=== PATIENT | male | born 1950 | race Hispanic/Latino ===

== ENCOUNTER 2022-05-10 00:32 | Day surgery (SDC) | payer MEDICARE, SELFPAY ==
[2022-04-27 13:30] VITALS: BMI 21.8
[2022-05-10 06:19] VITALS: BP 189/76; PULSE 110; RESP 18; TEMP 36.6; O2SAT 100
[2022-05-10] MEDS: LACTATED RINGERS 1,000 ML 150 ML IV CONT (06:21)
--- NOTE | 2022-05-10 07:00 | WPDANESEPPF ---
Anes - Initial Pre Proc Eval Procedure: Operation Date: 05/10/22 07:30 Proposed Procedures p Screening Colonoscopy - Ari Murphy MD Date/Time: 05/10/22 07:00 Surgeon: Ari Murphy MD Pre Op Diagnosis: hx of colon polyps Patient Data Age: 71 Gender: M Height: 1.83 m Weight: 71.9 kg Last Vital Signs Temp 36.6 C 05/10/22 06:19 Pulse 110 H 05/10/22 06:19 Resp 18 05/10/22 06:19 BP 189/76 H 05/10/22 06:19 Pulse Ox 100 05/10/22 06:19 O2 Del Method Room Air 05/10/22 06:19 Allergies Allergy/AdvReac Type Severity Reaction Status Date / Time No Known Allergies Allergy Verified 05/10/22 06:16 Home Medications Medication Instructions Recorded Confirmed Type sildenafil 25 mg tablet 25 mg PO DAILY PRN sexual activity 01/12/22 05/10/22 Rx #30 tabs amlodipine 5 mg tablet 5 mg PO DAILY #30 tabs 03/07/22 05/10/22 Rx tamsulosin 0.4 mg capsule 0.4 mg PO DAILY #30 caps 04/14/22 05/10/22 Rx Patient hx anesthesia problems: none Family hx anesthesia problems: none Results Review: All pre-operative results and documents have been reviewed as part of the pre-operative evaluation. [facility] Past Medical History Medical History (Updated 05/10/22 @ 07:00 by Ronak Alejandro MD) HTN (hypertension) Surgical History Surgical History (Updated 05/10/22 @ 07:00 by Ronak Alejandro MD) H/O colonoscopy Family History Family History Father Hypertension Family history of liver disease Family history of heart disease in male family member before age 55 Diabetes mellitus Sibling Hypertension Family history of diabetes mellitus in first degree relative Family history of lupus erythematosus Family history of heart disease in male family member before age 55 Mother Family history of malignant neoplasm of breast in first degree relative Social History Social History Smoking status: Never smoker Second hand tobacco smoke exposure: No Alcohol intake: current Drinks per week: 5 Substance use type: does not use Living arrangements: with family Spiritual care concerns: No Anes - Eval Final PreProcedure Day of Procedure 05/10/22 07:00 Patient weight: normal Heart: regular rate and rhythm and murmur (III/ SM) Lungs: clear to auscultation Neurological: alert and oriented Last oral intake: >/= 8 hours ASA classification: II Emergent: no Anesthetic plan: proceed Anesthesia type and monitoring: general GIVS and standard monitoring Results Review: All pre-operative results and documents have been reviewed as part of the pre-operative evaluation. Informed Consent: The patient's anesthetic plan and its attendant risks and benefits were discussed with the patient/family/POA. Questions were solicited and answers provided to the satisfaction of the patient/family/POA.
--- NOTE | 2022-05-10 07:24 | PM.IMHP ---
H&P: HPI History of Present Illness Date/Time: 05/10/22 07:24 Chief Complaint: Neoplasia screening. Narrative: This is a 71-year-old white male patient presents for screening colonoscopy. Patient's current weight appetite and bowel movements are normal. He denies abdominal pain. Patient has had no bleeding. Patient has a prior history of adenomatous colon polyp removed by colonoscopy in 2008. Patient's family history is noncontributory. Patient presents today for screening colonoscopy. Review of Systems Review of Systems: Review of systems noncontributory. [facility] Past Medical History Medical History (Updated 05/10/22 @ 07:25 by Ari Murphy MD) HTN (hypertension) Surgical History Surgical History (Updated 05/10/22 @ 07:00 by Ronak Alejandro MD) H/O colonoscopy Family History Family History Father Hypertension Family history of liver disease Family history of heart disease in male family member before age 55 Diabetes mellitus Sibling Hypertension Family history of diabetes mellitus in first degree relative Family history of lupus erythematosus Family history of heart disease in male family member before age 55 Mother Family history of malignant neoplasm of breast in first degree relative Social History Social History Smoking status: Never smoker Second hand tobacco smoke exposure: No Alcohol intake: current Drinks per week: 5 Substance use type: does not use Living arrangements: with family Spiritual care concerns: No Meds Home Medications and Allergies Home Medications Medication Instructions Recorded Confirmed Type sildenafil 25 mg tablet 25 mg PO DAILY PRN sexual activity 01/12/22 05/10/22 Rx #30 tabs amlodipine 5 mg tablet 5 mg PO DAILY #30 tabs 03/07/22 05/10/22 Rx tamsulosin 0.4 mg capsule 0.4 mg PO DAILY #30 caps 04/14/22 05/10/22 Rx Allergies Allergy/AdvReac Type Severity Reaction Status Date / Time No Known Allergies Allergy Verified 05/10/22 06:16 Vital Signs Vital Signs - 24 hr 05/10/22 06:19 Temperature 97.9 F Pulse Rate 110 H Respiratory Rate 18 Blood Pressure 189/76 H Pulse Oximetry 100 Oxygen Delivery Room Air Exam Narrative: Physical exam reveals patient to be alert. Vital signs stable. HEENT exam is unremarkable. Patient is anicteric. Lungs are clear to auscultation and percussion. Heart is without murmur or extra sounds. Abdomen bowel sounds are present soft nontender with no organomegaly. Digital external rectal exam is normal. Assessment and Plan Assessment and plan (1) History of colon polyps: Code(s): Z86.010 - Personal history of colonic polyps Status: Acute Assessment and Plan: Patient has a prior history of colon polyps. He presents today for surveillance colonoscopy. Further recommendations may be given after endoscopy.
[2022-05-10 07:48] VITALS: BP 110/52; PULSE 76; RESP 17; O2SAT 100
[2022-05-10 07:58] VITALS: BP 118/51; PULSE 73; RESP 17; O2SAT 100
[2022-05-10 08:08] VITALS: BP 129/62; PULSE 72; RESP 21; O2SAT 100
== END 2022-05-10 08:15 | disposition home or self-care (01) ==
PROVIDERS: PCP Family Medicine; Visit Provider Internal Medicine Gastroenterology
PROC: 0DJD8ZZ Inspection of Lower Intestinal Tract, Via Natural or Artificial Opening Endoscopic (ICD-10-PCS; CPT 45378; principal; 2022-05-10 07:30)
DX: Z12.11 Encounter for screening for malignant neoplasm of colon (principal); K64.8 Other hemorrhoids; Z86.010 Personal history of colon polyps; I10 Essential (primary) hypertension
CPT/HCPCS: G0105; J2704; J7120

== ENCOUNTER 2022-10-25 05:52 | Day surgery (SDC) | payer MEDICARE, SELFPAY ==
[2022-10-19 13:32] VITALS: BMI 22.8
[2022-10-19 14:56] VITALS: BMI 22.7
[2022-10-25 06:21] VITALS: BP 173/72; PULSE 92; RESP 16; TEMP 37; O2SAT 100; BMI 22.3
[2022-10-25] MEDS: LACTATED RINGERS 1,000 ML 30 ML IV CONT (07:00)
--- NOTE | 2022-10-25 07:19 | WPDHPUPDATE1 ---
History and Physical Update Update Date/Time: 10/25/22 07:19 History and Physical has been reviewed, including an updated exam of the patient. There are NO changes in the patient's condition. Risks, benefits, and alternatives have been discussed and questions answered. Patient agrees to proceed with procedure.
--- NOTE | 2022-10-25 07:28 | WPDANESEPPF ---
Anes - Initial Pre Proc Eval Procedure: Operation Date: 10/25/22 07:30 Proposed Procedures p Excisional Biopsy Posterior Neck Mass x2 - Ivett Lomas MD Date/Time: 10/25/22 07:28 Surgeon: Ivett Lomas MD Pre Op Diagnosis: LT Posterior Neck Mass & RT Posterior Neck Cy Patient Data Age: 71 Gender: M Height: 1.83 m Weight: 74.6 kg Last Vital Signs Temp 37.0 C 10/25/22 06:21 Pulse 92 10/25/22 06:21 Resp 16 10/25/22 06:21 BP 173/72 H 10/25/22 06:21 Pulse Ox 100 10/25/22 06:21 O2 Del Method Room Air 10/25/22 06:21 Allergies Allergy/AdvReac Type Severity Reaction Status Date / Time No Known Allergies Allergy Verified 10/25/22 06:12 Home Medications Medication Instructions Recorded Confirmed Type sildenafil 25 mg tablet 25 mg PO DAILY PRN sexual activity 01/12/22 10/19/22 Rx #30 tabs amlodipine 5 mg tablet 5 mg PO DAILY #90 tabs 09/02/22 10/19/22 Rx tamsulosin 0.4 mg capsule 0.4 mg PO DAILY #90 caps 09/27/22 10/25/22 Rx Patient hx anesthesia problems: none Family hx anesthesia problems: none Results Review: All pre-operative results and documents have been reviewed as part of the pre-operative evaluation. [facility] Past Medical History Medical History HTN (hypertension) Surgical History Surgical History H/O colonoscopy History of tonsillectomy Family History Family History Father Hypertension Family history of liver disease Family history of heart disease in male family member before age 55 Diabetes mellitus Sibling Hypertension Family history of diabetes mellitus in first degree relative Family history of lupus erythematosus Family history of heart disease in male family member before age 55 Mother Family history of malignant neoplasm of breast in first degree relative Social History Social History Smoking status: Never smoker Second hand tobacco smoke exposure: No Alcohol intake: current Drinks per week: 1 Alcohol use details: NONE FOR LENT Substance use: never Substance use type: does not use Lack of Transportation: No Lack of Food: Never True Current Housing: I Have Housing Concerned About Future Housing: No Difficulty Paying Gas/Electric Bills: No Difficulty Paying for Meds: No Currently Unemployed: No Education: Bachelor's Degree Difficulty w/ Childcare or Family Care: No Living arrangements: with family Occupation/Education: retired Spiritual care concerns: No Anes - Eval Final PreProcedure Day of Procedure 10/25/22 07:28 Patient weight: normal Heart: regular rate and rhythm Lungs: clear to auscultation Airway: Mallampati scale class II Neurological: alert and oriented Last oral intake: >/= 8 hours ASA classification: II Emergent: no Anesthetic plan: proceed Anesthesia type and monitoring: general GIVS and standard monitoring Results Review: All pre-operative results and documents have been reviewed as part of the pre-operative evaluation. Informed Consent: The patient's anesthetic plan and its attendant risks and benefits were discussed with the patient/family/POA. Questions were solicited and answers provided to the satisfaction of the patient/family/POA.
[2022-10-25] MEDS: ceFAZolin SODIUM 2 GM/20 ML SW SYRINGE IV PUSH (07:30)
--- NOTE | 2022-10-25 08:03 | W.PM.PROC2 ---
Procedure Note - Detailed Date of Procedure 10/25/22 Pre-op Diagnosis Left Posterior Neck Mass & Right Posterior Neck Cyst Post-op Diagnosis Same Procedure Performed Excisional biopsy left posterior neck mass measuring approximately 7 x 5 cm and right posterior neck cyst measuring approximately 1 x 0.5 cm Surgeon Ivett Lomas MD Anesthesia MAC and Local Indications The patient is a 71-year-old male presenting to the office with slowly growing left posterior neck mass. The patient reports slow growth in size and now symptomatic especially with pressure movement. The patient also has a small right posterior neck cyst Findings left posterior neck lipoma measuring approximately 7 x 5 cm, right posterior neck cystic mass measuring approximately 1 x 0.5 cm Description of Procedure The patient was taken to the operating room and placed in the lateral position. After adequate induction of MAC anesthesia, the patient was prepped and draped in the normal sterile fashion. A time-out was then done to verify the patient's identity, as well as the procedure being performed. I began by localizing both these areas in the posterior neck. Once adequately localized, I 1st made an elliptical incision around the smaller cystic mass. I was then able to go through the dermis into the subcutaneous tissue where was able to locate the cystic mass. I was able to then excise the mass in full. Once excised it was sent to pathology for further review. I then gained hemostasis with the Bovie cautery. I then closed the subcutaneous tissue with 3-0 Vicryl suture. The skin was closed with 4-0 Monocryl subcuticular suture. I then made an incision over the larger mass in the left posterior neck. Once through the dermis into the subcutaneous tissue, I encountered a well-circumscribed lipoma. I was able to bluntly dissect around the adhesions to this lipoma. The lipoma was then removed in full and will be sent to pathology for further. I again gained hemostasis with the Bovie cautery. The subcutaneous tissue was closed with 3-0 Vicryl suture and the skin was closed with 4-0 Monocryl subcuticular suture. Dermabond was placed on both wounds. The patient was be transferred to the recovery room in stable condition. Estimated Blood Loss 5 Drains No Packing No Pathology Yes Complications No immediate complications Condition Stable Disposition PACU [facility] Billing Surgery - Charge Forward: Surgery Billing
[2022-10-25] MEDS: BUPIVACAINE/EPINEPHRINE 0.5% 30 ML VIAL 20 ML INFILTRATE (08:06)
[2022-10-25 08:16] VITALS: BP 142/62; PULSE 86; RESP 14; O2SAT 97
--- NOTE | 2022-10-25 08:22 | WPDANESPN ---
Anes - Prog Note Post-Op Date/Time: 10/25/22 08:22 Cardiovascular status: normal Respiratory status: normal Airway patency: baseline Mental status: baseline Post-Op hydration status: normal Vital Signs: Last Vital Signs Temp 37.0 C 10/25/22 06:21 Pulse 86 10/25/22 08:16 Resp 14 10/25/22 08:16 BP 142/62 H 10/25/22 08:16 Pulse Ox 97 10/25/22 08:16 O2 Del Method Room Air 10/25/22 08:16 Pain Score (VAS): 0 I/O: Intake & Output 10/24/22 10/25/22 10/25/22 23:59 07:59 15:59 Intake Total 0 Balance 0 Patient Feedback: Patient satisfied with anesthetic care.
[2022-10-25 08:30] VITALS: BP 127/62; PULSE 78; RESP 16; O2SAT 99
[2022-10-25 08:45] VITALS: BP 124/62; PULSE 69; RESP 16; O2SAT 99
--- NOTE | 2022-10-25 09:14 | SUR.PHASEII ---
0850 PT AWAKE AND ALERT. DENIES PAIN OR NAUSEA. DRINKING APPLE JUICE. SPOUSE AT BEDSIDE
== END 2022-10-25 09:10 | disposition home or self-care (01) ==
PROVIDERS: PCP Family Medicine; Visit Provider Surgery
PROC: (CPT 21552; principal; 2022-10-25 07:30)
DX: R22.1 Localized swelling, mass and lump, neck (principal)
CPT/HCPCS: 21552; 21555

== ENCOUNTER 2022-10-25 09:00 | Outpatient (NON) | payer MEDICARE, SELFPAY | END 2022-10-25 09:01 | disposition home or self-care (01) | LOC: ANHLAB 10-26 10:35 | PROVIDERS: PCP Family Medicine; Visit Provider Surgery | DX: L72.0 Epidermal cyst (principal); D17.0 Benign lipomatous neoplasm of skin and subcutaneous tissue of head, face and neck | CPT/HCPCS: 88304 ==

== ENCOUNTER 2023-04-12 08:04 | Outpatient (CLI) | payer MEDICARE, SELFPAY ==
[2023-04-12 18:55] LABS: Alanine Aminotransferase 23 U/L (6-50); Albumin Level 3.9 g/dL (3.5-5.1); Alkaline Phosphatase 55 U/L (38-126); Anion Gap 3 mmol/L (8-16); Aspartate Amino Transferase 35 U/L (17-59); Bilirubin,Total 0.5 mg/dL (0.2-1.3); Blood Urea Nitrogen 27 mg/dL (9-20); Calcium 8.5 mg/dL (8.4-10.2); Carbon Dioxide 26 mmol/L (22-30); Chloride 105 mmol/L (98-107); Cholesterol 175 mg/dL (0-200); Estimated Glomerular Filt Rate > 60; Glucose 99 mg/dL (65-110); HDL Direct 53 mg/dL; Potassium 4.9 mmol/L (3.4-5.0); Sodium 134 mmol/L (137-145); Triglycerides 61 mg/dL (<150)
[2023-04-12 19:06] LABS: LDL Cholesterol Direct 91 mg/dL
[2023-04-16 06:18] LABS: PSA, Free 0.74 ng/mL; PSA, Total 3.8 ng/mL (<=4.0); Percent Free Prostate Spec Ag 19 % (>25)
== END 2023-04-12 08:05 | disposition home or self-care (01) ==
PROVIDERS: PCP Family Medicine; Visit Provider Family Medicine
DX: Z13.220 Encounter for screening for lipoid disorders (principal); R97.20 Elevated prostate specific antigen [PSA]; I10 Essential (primary) hypertension
CPT/HCPCS: 36415; 80053; 80061; 84153; 84154

== ENCOUNTER 2024-05-03 08:09 | Outpatient (CLI) | payer MEDICARE, SELFPAY ==
[2024-05-03 16:12] LABS: Alanine Aminotransferase 21 U/L (6-50); Albumin Level 4.2 g/dL (3.5-5.1); Alkaline Phosphatase 62 U/L (38-126); Anion Gap 9 mmol/L (4-12); Aspartate Amino Transferase 73 U/L (17-59); Bilirubin,Total 0.7 mg/dL (0.2-1.3); Blood Urea Nitrogen 31 mg/dL (9-20); Calcium 8.5 mg/dL (8.4-10.2); Carbon Dioxide 29 mmol/L (22-30); Chloride 102 mmol/L (98-107); Cholesterol 165 mg/dL (0-200); Estimated Glomerular Filt Rate > 60; Glucose 78 mg/dL (65-110); HDL Direct 48 mg/dL; Potassium 4.4 mmol/L (3.4-5.0); Sodium 140 mmol/L (137-145); Triglycerides 57 mg/dL (<150)
[2024-05-03 16:25] LABS: LDL Cholesterol Direct 89 mg/dL
[2024-05-03 16:48] LABS: Prostate Specific Antigen 4.9 ng/mL (< OR = 4.0)
== END 2024-05-03 08:10 | disposition home or self-care (01) ==
PROVIDERS: PCP Family Medicine; Visit Provider Family Medicine
DX: Z13.220 Encounter for screening for lipoid disorders (principal); Z13.228 Encounter for screening for other metabolic disorders; I10 Essential (primary) hypertension; Z12.5 Encounter for screening for malignant neoplasm of prostate
CPT/HCPCS: 36415; 80053; 80061; 84153; G0103

== ENCOUNTER 2025-01-01 08:08 | Outpatient (CLI) | payer MEDICARE, SELFPAY ==
[2025-01-01 19:33] LABS: Hematocrit 45.4 % (42.0-52.0); Hemoglobin 13.7 g/dL (14.0-18.0); Mean Corpuscular HGB Conc 30.2 g/dl (32-36); Mean Corpuscular Hemoglobin 30.5 pg (26-34); Mean Corpuscular Volume 101.1 fl (80-100); Mean Platelet Volume 12.7 fl (7.4-10.4); Platelet Count Result 148 k/mm3 (150-375); Red Blood Count 4.49 M/mm3 (4.6-6.20); Red Cell Distribution Width 15.1 % (11.5-14.5); White Blood Count 5.1 K/mm3 (4.5-10.0)
[2025-01-01 19:55] LABS: Alanine Aminotransferase 25 U/L (6-50); Alkaline Phosphatase 62 U/L (38-126); Anion Gap 6 mmol/L (4-12); Aspartate Amino Transferase 47 U/L (17-59); Bilirubin,Total 0.5 mg/dL (0.2-1.3); Blood Urea Nitrogen 24 mg/dL (9-20); Calcium 8.5 mg/dL (8.4-10.2); Carbon Dioxide 28 mmol/L (22-30); Chloride 106 mmol/L (98-107); Cholesterol 164 mg/dL (0-200); Estimated Glomerular Filt Rate > 60; Glucose 86 mg/dL (65-110); HDL Direct 41 mg/dL; Sodium 140 mmol/L (137-145); Triglycerides 91 mg/dL (<150)
[2025-01-01 20:06] LABS: LDL Cholesterol Direct 85 mg/dL
== END 2025-01-01 08:09 | disposition home or self-care (01) ==
LOC: ANHGOSHLAB 08:09
PROVIDERS: PCP Family Medicine; Visit Provider Family Medicine
DX: E78.5 Hyperlipidemia, unspecified (principal); I10 Essential (primary) hypertension; Z79.899 Other long term (current) drug therapy
CPT/HCPCS: 36415; 80053; 80061; 84443; 85027